=== PATIENT | female | born 1995 | race Caucasian/White ===

== ENCOUNTER 2017-08-01 18:02 | Emergency (ER) | payer SELFPAY ==
[~2017-08-01] VITALS: Ht 172.7 cm; Wt 63.5 kg
[~2017-08-01 18:02] MED LIST: CEPHALEXIN500 MG PO; NORCO 5-325 TA1 EACH PO; PRENATAL VITAM1 EACH PO; RANITIDINE HCL150 MG PO; TUMS200 MG PO
[2017-08-01] MEDS ORDERED: THERAFLU EXP245.5 ML PO (18:34)
[2017-08-01] MEDS ORDERED: GUAIFENESIN AC473 ML PO (19:30)
== END 2017-08-01 19:38 | disposition home or self-care (01) ==
LOC: ED 18:02
DX: B34.9 Viral infection, unspecified (principal); F17.200 Nicotine dependence, unspecified, uncomplicated
CPT/HCPCS: 99283

== ENCOUNTER 2018-05-09 16:49 | Inpatient (IN) | payer OTHER ==
[~2018-05-09 16:49] MED LIST changes: +GUAIFENESIN AC473 ML PO; +THERAFLU EXP245.5 ML PO
--- NOTE | 2018-05-10 08:42 | PR ---
[facility] [address] [place], [place] [address] Signed PP Progress Notes Datetime Report Generated by CPN: 05/10/2018 08:41 SUBJECTIVE: [id number] Pain: Within normal limits Nausea/Vomiting: Denies Flatus: Yes Bowel Movement: No Vital Signs: [id number] Vital Signs: Reviewed; Within Normal Limits EXAM: [id number] Cardiovascular: Normal Respiratory: Normal Abdomen/Uterus: Normal Lochia: Normal Vulva/Perineum: Not Done Breasts: Not Done CVA Tenderness: Normal Extremities: Normal Incision: Not Applicable Progress: Normal Exam Comments: Fundus firm U-2 nontender IMPRESSION/PLAN/PROCEDURES: [id number] Impression: Normal progression Plan: Continue present management Progress Notes: Pt seen and examined. Doing well. Ambulating, voiding, and tolerating full diet. Pain and lochia minimal. well. No fevers/chills/other concerns. Hgb 11.7 Baby Rh negative. Signing Physician: Gail Cortes DO Copies: ~ *Electronically Signed* 05/10/18 0841 GAIL CORTES DO PATIENT NAME: CHRISTINA STORY PROGRESS NOTE DATE OF : 89 PHYSICIAN: GAIL CORTES DO RPT #: [id number] REPORT IS CONFIDENTIAL AND NOT TO BE RELEASED WITHOUT AUTHORIZATION
--- NOTE | 2018-05-11 07:47 | PR ---
[facility] [address] [place], [place] [address] Signed PP Progress Notes Datetime Report Generated by CPN: 05/11/2018 07:47 SUBJECTIVE: [id number] Pain: Within normal limits Nausea/Vomiting: Denies Flatus: Yes Bowel Movement: No Vital Signs: [id number] Vital Signs: Reviewed; Within Normal Limits EXAM: [id number] Cardiovascular: Normal Respiratory: Normal Abdomen/Uterus: Normal Lochia: Normal Vulva/Perineum: Not Done Breasts: Not Done CVA Tenderness: Normal Extremities: Normal Incision: Not Applicable Progress: Normal Exam Comments: Fundus firm U-2 nontender IMPRESSION/PLAN/PROCEDURES: [id number] Impression: Normal progression Plan: Discharge Progress Notes: Pt seen and examined. Doing well. Ambulating, voiding, and tolerating full diet. Pain and lochia minimal. well. No fevers/chills/other concerns. Hgb 11.7 Baby Rh negative. Signing Physician: Gail Cortes DO Copies: ~ *Electronically Signed* 05/11/18 0747 GAIL CORTES DO PATIENT NAME: CHRISTINA STORY PROGRESS NOTE DATE OF : 95 PHYSICIAN: GAIL CORTES DO RPT #: [id number] REPORT IS CONFIDENTIAL AND NOT TO BE RELEASED WITHOUT AUTHORIZATION
== END 2018-05-11 12:30 | disposition home or self-care (01) | DRG 807 ==
LOC: FBCO 16:49 → FBC 17:27
PROVIDERS: ADMIT Obstetrics & Gynecology
PROC: 10E0XZZ Delivery of Products of Conception, External Approach (ICD-10-PCS; principal; 2018-05-09)
PROC: 0KQM0ZZ Repair Perineum Muscle, Open Approach (ICD-10-PCS; 2018-05-09)
PROC: 10907ZC Drainage of Amniotic Fluid, Therapeutic from Products of Conception, Via Natural or Artificial Opening (ICD-10-PCS; 2018-05-09)
DX: O62.3 Precipitate labor (principal); Z37.0 Single live birth; O77.0 Labor and delivery complicated by meconium in amniotic fluid; O70.1 Second degree perineal laceration during delivery; Z3A.40 40 weeks gestation of pregnancy
CPT/HCPCS: 36415; 85027; J2590; J7120

== ENCOUNTER 2020-05-02 01:16 | Emergency (ER) | payer OTHER ==
[~2020-05-02] VITALS: Ht 172.7 cm; Wt 56.7 kg
[2020-05-02] MEDS ORDERED: MIRENA1 EACH IY (01:38)
== END 2020-05-02 04:05 | disposition home or self-care (01) ==
LOC: ED 01:16
DX: T83.84XA Pain due to genitourinary prosthetic devices, implants and grafts, initial encounter (principal); R10.2 Pelvic and perineal pain; Z87.891 Personal history of nicotine dependence; Z79.899 Other long term (current) drug therapy
CPT/HCPCS: 76830; 76856; 81001; 84703; 99284-25